=== PATIENT | male | born 1985 | race Caucasian/White ===

== ENCOUNTER → 2017-09-17 | Outpatient (CLI) | payer OTHER ==
--- NOTE | 2017-09-17 15:35 | MRI ---
Indication: Neck pain and left arm radiculopathy. Exam: MRI cervical spine without contrast. Technique: Routine multiplanar multisequence imaging was performed through the cervical spine without contrast. Findings: There is reversal of the normal lordotic curvature. There is [id number] disc space na rrowing throughout the cervical spine which is more prominent inferiorly. No fracture or subluxation is seen. The cervical cord is normal size and signal intensity throughout. There is a moderate broad- based disc osteophyte complex at C5-6 lateralizing to the right causing moderate anterior lateral dur al sac effacement and slight cord effacement anterior laterally . There is mild neural foraminal narr owing on the right. There is a moderate disc osteophyte complex at C6-7 causing moderate dural sac ef facement anteriorly. The bone marrow signal is normal throughout . The paravertebral soft tissues are normal. Impression: Reversal of the normal lordotic curvature which is probably due to muscle spasm with no acute abnorma lity seen. Moderate broad-based disc osteophyte complex at C5-6 lateralizing to the right causing moderate anter olateral dural sac effacement and slight cord effacement laterally with mild narrowing of the right n eural foramen. Moderate disc osteophyte complex at C6-7 causing moderate dural sac effacement anteriorly. Reported By:
== END ==
LOC: RAD 14:21
PROVIDERS: ATTEND Internal Medicine
DX: M54.2 Cervicalgia (principal); M79.602 Pain in left arm; M25.78 Osteophyte, vertebrae; R20.2 Paresthesia of skin
CPT/HCPCS: 72141